=== PATIENT | male | born 1970 | race Caucasian/White ===

== ENCOUNTER 2019-10-31 16:12 | Emergency (ER) | payer BC, OTHER ==
[2019-10-31] MEDS ORDERED: LIDOCAINE 1% MPF 5 ML VIAL ONE (18:29)
--- NOTE | 2019-10-31 19:07 | EDPHYS ---
Physician Documentation [facility] Name: Derek Silva Age: 49 yrs Sex: Male : 1970 Arrival Date: 10/31/2019 Time: 16:22 Bed 10 Private MD: ED Physician Silvano Vivas HPI: 10/30 18:16 This 49 yrs old Male presents to ER via Ambulatory with complaints of Finger pm1 Injury. 18:16 The patient or guardian reports a laceration, irregular. The complaints affect the pm1 dorsal aspect of proximal phalanx of left little finger. Context: The problem was sustained at work, resulted from sharp piece of plastic sticking up on freezer tray. Onset: The symptoms/episode began/occurred just prior to arrival. Modifying factors: The symptoms are alleviated by pressure to area. Associated signs and symptoms: Pertinent negatives: cyanosis distally, decreased sensation distally, numbness distally, tingling distally. Severity of symptoms: in the emergency department the symptoms have improved. The patient has not experienced similar symptoms in the past. The patient has not recently seen a physician. Historical: - Allergies: 16:31 No Known Allergies; ll1 - PMHx: 16:31 SVT; ll1 - Immunization history:: Flu vaccine is not up to date. - Social history:: Smoking status: Patient denies any tobacco usage or history of. Patient/guardian denies using alcohol, street drugs, tobacco products. ROS: 18:16 Constitutional: Negative for fever, chills, and weight loss. pm1 18:16 Neuro: Negative for headache, weakness, numbness, tingling, and seizure. 18:16 MS/extremity: Positive for laceration, of the dorsal aspect of proximal phalanx of left little finger. 18:16 Skin: Positive for laceration(s), of the dorsal aspect of proximal phalanx of left little finger. 18:16 All other systems are negative. Exam: 18:16 Constitutional: This is a well developed, well nourished patient who is awake, alert, pm1 and in no acute distress. Head/Face: Normocephalic, atraumatic. 18:16 Cardiovascular: Exam negative for acute changes, Rate: normal, Rhythm: regular, Pulses: no pulse deficits are appreciated. 18:16 Respiratory: Exam negative for acute changes, respiratory distress, shortness of breath. 18:16 Musculoskeletal/extremity: Extremities: grossly normal except: noted in the dorsal aspect of proximal phalanx of left little finger: laceration, There is no evidence of decreased ROM, deformity, ROM: intact in all extremities, Circulation is intact in all extremities. the left little finger Sensation intact. 18:16 Skin: Appearance: normal except for affected area, injury, laceration(s), the wound is approximately 3 cm(s), with a depth of 0.3 cm(s), of the dorsal aspect of proximal phalanx of left little finger, that can be described as clean, no foreign body, irregular, without bleeding, flap on the joint. Vital Signs: 16:31 BP 155 / 90; Pulse 110; Resp 17; Temp 98.2; Pulse Ox 96% ; Pain 2/10; ll1 19:30 BP 135 / 86; Pulse 95; Resp 15; Temp 98; Pulse Ox 99% on R/A; rv Laceration: 19:04 Wound Repair of 3cm ( 1.2in ) subcutaneous laceration to dorsal aspect of proximal pm1 phalanx of left little finger. Irregularly shaped.. Distal neuro/vascular/tendon intact. Anesthesia: Digital block administered with 2 mls of 1% lidocaine. Wound prep: Extensive cleansing with betadine with hibiclenz by me, Wound irrigation with saline by me, Wound explored extensively, Copious irrigation. Skin closed with 5 5-0 Prolene using simple sutures and sterile technique. Dressed with Neosporin, 4x4's, splint. Patient tolerated well. MDM: 18:09 Patient medically screened. pm1 19:04 Data reviewed: vital signs. Data interpreted: Pulse oximetry: on room air is 96 %. pm1 Interpretation: normal. Counseling: I had a detailed discussion with the patient and/or guardian regarding: the historical points, exam findings, and any diagnostic results supporting the discharge/admit diagnosis, the need for outpatient follow up, a hand specialist, suture removal in 10-14 days, to return to the emergency department if symptoms worsen or persist or if there are any questions or concerns that arise at home. 19:04 ED course: wound loosely closed with area to provide drainage. pm1 10/30 18:16 Order name: Prolene, Sutures; Complete Time: 18:22 pm1 10/30 18:16 Order name: Dressing - Wound; Complete Time: 18:22 pm1 10/30 18:16 Order name: Gloves, Sterile; Complete Time: 18:22 pm1 10/30 18:16 Order name: Setup Suture Tray; Complete Time: 18:22 pm1 10/30 18:17 Order name: Wound Care; Complete Time: 18:19 pm1 Administered Medications: 18:45 Drug: Lidocaine (1 %) 5 ml {Note: administered by J CARLOS Christian.} Volume: 5 ml; Route: ss Infiltration; 19:31 Follow up: Response: No adverse reaction rv Disposition: 20:39 Co-signature as Attending Physician, Silvano Vivas MD I agree with the assessment and amadeo plan of care. Disposition: 10/31/19 19:06 Discharged to Home. Impression: Laceration without foreign body of left little finger without damage to nail. - Condition is Stable. - Discharge Instructions: Cast or Splint Care, Adult, Laceration Care, Adult. - Prescriptions for Doxycycline Hyclate 100 mg Oral Tablet - take 1 tablet by ORAL route every 12 hours; 20 tablet. - Medication Reconciliation Form, Thank You Letter, Antibiotic Education, Prescription Opioid Use form. - Follow up: Emergency Department; When: As needed; Reason: Worsening of condition. Follow up: Private Physician; When: 2 - 3 days; Reason: Recheck today's complaints, Continuance of care, Re-evaluation by your physician. - Problem is new. - Symptoms have improved. Signatures: Silvano Vivas MD MD cha Smirch, Shelby, RN RN ss Gino Heredia NP SCOUT LEASER pm1 Mikey Davis RN RN Nita Card RN RN ll1 Corrections: (The following items were deleted from the chart) 19:31 19:06 10/31/2019 19:06 Discharged to Home. Impression: Laceration without foreign body rv of left little finger without damage to nail. Condition is Stable. Forms are Medication Reconciliation Form, Thank You Letter, Antibiotic Education, Prescription Opioid Use. Follow up: Emergency Department; When: As needed; Reason: Worsening of condition. Follow up: Private Physician; When: 2 - 3 days; Reason: Recheck today's complaints, Continuance of care, Re-evaluation by your physician. Problem is new. Symptoms have improved. pm1
--- NOTE | 2019-10-31 19:07 | ER ---
Nurse's Notes [facility] Name: Derek Silva Age: 49 yrs Sex: Male : 1970 Arrival Date: 10/31/2019 Time: 16:22 Bed 10 Private MD: Diagnosis: Laceration without foreign body of left little finger without damage to nail Presentation: 10/30 16:31 Chief complaint: Patient states: Cut left hand 5th digit on broken piece of plastic ll1 today at work . Avulsion-like laceration noted to 5th digit. Coronavirus screen: Proceed with normal triage. Patient denies a cough. Patient denies shortness of breath or difficulty breathing. Patient denies measured and/or subjective temperature greater than 100.4F prior to today's visit. Patient denies travel on a cruise ship or to a country the [facility] currently lists as an affected area. Patient denies contact with known and/or suspected case of COVID-19. Ebola Screen: Patient denies travel to an Ebola-affected area in the 21 days before illness onset. Initial Sepsis Screen: Does the patient meet any 2 criteria? No. Patient's initial sepsis screen is negative. Risk Assessment: Do you want to hurt yourself or someone else? Patient reports no desire to harm self or others. Onset of symptoms was October 31, 2019. 16:31 Method Of Arrival: Ambulatory [facility] 16:31 Acuity: RUTHY 4 ll1 19:31 Initial Sepsis Screen: Does the patient have a suspected source of infection? No. rv Patient's initial sepsis screen is negative. Triage Assessment: 19:31 Injury Description: Laceration sustained to left hand is clean, superficial. rv Historical: - Allergies: 16:31 No Known Allergies; ll1 - PMHx: 16:31 SVT; ll1 - Immunization history:: Flu vaccine is not up to date. - Social history:: Smoking status: Patient denies any tobacco usage or history of. Patient/guardian denies using alcohol, street drugs, tobacco products. Screenin:13 Abuse screen: Denies threats or abuse. Denies injuries from another. Nutritional ss screening: No deficits noted. Tuberculosis screening: Never had TB. Fall Risk None identified. Assessment: 18:13 General: Appears in no apparent distress. comfortable, Behavior is calm, cooperative. ss Pain: Complains of pain in dorsal aspect of proximal phalanx of left little finger Pain currently is 1 out of 10 on a pain scale. Quality of pain is described as burning, tender. Neuro: Level of Consciousness is awake, alert, obeys commands, Oriented to person, place, time, situation. Cardiovascular: Capillary refill < 3 seconds is brisk in bilateral. Respiratory: Airway is patent Respiratory effort is even, unlabored, Respiratory pattern is regular, symmetrical. Derm: Skin is intact, is healthy with good turgor, Skin is pink, warm \T\ dry. normal. Musculoskeletal: Circulation, motion, and sensation intact. Range of motion: intact in all extremities. Vital Signs: 16:31 BP 155 / 90; Pulse 110; Resp 17; Temp 98.2; Pulse Ox 96% ; Pain 2/10; ll1 19:30 BP 135 / 86; Pulse 95; Resp 15; Temp 98; Pulse Ox 99% on R/A; rv ED Course: 16:22 Patient arrived in ED. bp1 16:33 Triage completed. ll1 16:33 Arm band placed on Patient notified of wait time. ll1 18:08 Gino Heredia NP is PHCP. pm1 18:08 Silvano Vivas MD is Attending Physician. pm1 18:12 Lesvia Hale, AVIS is Primary Nurse. ss 18:13 Patient has correct armband on for positive identification. Bed in low position. Call ss light in reach. 19:30 Assist provider with laceration repair on left hand that was 2.5 cm. or less using rv sutures. Set up tray. Performed by Gino Heredia MARINE EXTENSION AGENT Dressed with 4X4s, Patient tolerated well. Patient did not have IV access during this emergency room visit. Administered Medications: 18:45 Drug: Lidocaine (1 %) 5 ml {Note: administered by J CARLOS Christian.} Volume: 5 ml; Route: ss Infiltration; 19:31 Follow up: Response: No adverse reaction rv Outcome: 19:06 Discharge ordered by . pm1 19:30 Discharged to home ambulatory. rv 19:30 Condition: good 19:30 Discharge instructions given to patient, Instructed on discharge instructions, follow up and referral plans. medication usage, wound care, Demonstrated understanding of instructions, follow-up care, medications, wound care, splint care, Prescriptions given X 1. 19:31 Patient left the ED. rv Signatures: Lesvia Hale, RN RN ss Gino Heredia, MARINE EXTENSION AGENT MARINE EXTENSION AGENT pm1 Mikey Davis, RN RN rv Nita Card, RN RN ll1 Rachele Garza
[2019-10-31 19:38] VITALS: BP 135/86; TEMP 98; O2SAT 99
== END 2019-10-31 19:31 | disposition home or self-care (01) ==
LOC: ER 16:12
PROC: 0JQK0ZZ Repair Left Hand Subcutaneous Tissue and Fascia, Open Approach (ICD-10-PCS; principal; 2019-10-31)
DX: S61.217A Laceration without foreign body of left little finger without damage to nail, initial encounter (principal); W26.8XXA Contact with other sharp object(s), not elsewhere classified, initial encounter; Y93.89 Activity, other specified; Y92.89 Other specified places as the place of occurrence of the external cause; Y99.8 Other external cause status
CPT/HCPCS: 99283

== ENCOUNTER 2019-11-13 11:40 | Emergency (ER) | payer OTHER ==
--- NOTE | 2019-11-13 12:31 | EDPHYS ---
Physician Documentation [facility] Name: Derek Silva Age: 49 yrs Sex: Male : 1970 Arrival Date: 11/13/2019 Time: 11:43 Bed 25 Private MD: None, None ED Physician Dat Mott HPI: 11/12 12:30 This 49 yrs old Male presents to ER via Ambulatory with complaints of Suture pm1 Removal. 12:30 The patient has sutures on the dorsal aspect of PIP of left little finger. Previous pm1 treatment: the care was rendered at [facility], Treatment type: The patient's original treatment included sutures. Sutures/ramses progress: The patient has no c/o's. The wound is well-healing with no redness, swelling, discharge, or dehiscence reported. The patient has not experienced similar symptoms in the past. Historical: - Allergies: 11:58 Levaquin; ll1 - PMHx: 11:58 SVT; ll1 - Social history:: Smoking status: Patient denies any tobacco usage or history of. Patient/guardian denies using alcohol, street drugs. ROS: 12:30 Constitutional: Negative for fever, chills, and weight loss, MS/Extremity: Negative for pm1 injury and deformity. 12:30 Skin: Negative for injury, rash, and discoloration, Neuro: Negative for headache, weakness, numbness, tingling, and seizure. 12:30 All other systems are negative. Exam: 12:30 Constitutional: This is a well developed, well nourished patient who is awake, alert, pm1 and in no acute distress. 12:30 Head/Face: Normocephalic, atraumatic. 12:30 Cardiovascular: Exam negative for acute changes, Rate: normal, Rhythm: regular, Pulses: no pulse deficits are appreciated. 12:30 Respiratory: Exam negative for acute changes, respiratory distress, shortness of breath. 12:30 Skin: Wound recheck: Suture laceration closure: the wound is healing well, the edges are well approximated, no evidence of dehiscence, no drainage, no erythema, no swelling. Vital Signs: 11:58 BP 140 / 88; Pulse 74; Resp 17; Temp 98.2; Pulse Ox 96% ; Pain 0/10; ll1 MDM: 12:22 Patient medically screened. pm1 12:30 Data reviewed: vital signs. Counseling: I had a detailed discussion with the patient pm1 and/or guardian regarding: the historical points, exam findings, and any diagnostic results supporting the discharge/admit diagnosis, to return to the emergency department if symptoms worsen or persist or if there are any questions or concerns that arise at home. Administered Medications: No medications were administered Disposition: 16:18 Co-signature as Attending Physician, Dat Mott MD. rn Disposition: 11/13/19 12:30 Discharged to Home. Impression: Encounter for removal of sutures. - Condition is Stable. - Discharge Instructions: Suture Removal, Care After. - Medication Reconciliation Form, Thank You Letter, Antibiotic Education, Prescription Opioid Use form. - Follow up: Emergency Department; When: As needed; Reason: Worsening of condition. Follow up: Private Physician; When: As needed; Reason: Recheck today's complaints, Continuance of care, Re-evaluation by your physician. - Problem is new. - Symptoms have improved. Signatures: Dat Mott MD MD rn Smirch, Shelby, RN RN ss Gino Heredia, NURSING PROJECT COORDINATOR NURSING PROJECT COORDINATOR pm1 Nita Card RN RN ll1 Corrections: (The following items were deleted from the chart) 12:49 12:30 11/13/2019 12:30 Discharged to Home. Impression: Encounter for removal of ss sutures. Condition is Stable. Forms are Medication Reconciliation Form, Thank You Letter, Antibiotic Education, Prescription Opioid Use. Follow up: Emergency Department; When: As needed; Reason: Worsening of condition. Follow up: Private Physician; When: As needed; Reason: Recheck today's complaints, Continuance of care, Re-evaluation by your physician. Problem is new. Symptoms have improved. pm1
--- NOTE | 2019-11-13 12:31 | ER ---
Nurse's Notes [facility] Name: Derek Silva Age: 49 yrs Sex: Male : 1970 Arrival Date: 11/13/2019 Time: 11:43 Bed 25 Private MD: None, None Diagnosis: Encounter for removal of sutures Presentation: 11/12 11:58 Chief complaint: Patient states: Need sutures removed from left hand 5th digit. ll1 Coronavirus screen: Patient denies a cough. Patient denies shortness of breath or difficulty breathing. Patient denies measured and/or subjective temperature greater than 100.4F prior to today's visit. Patient denies travel on a cruise ship or to a country the [facility] currently lists as an affected area. Patient denies contact with known and/or suspected case of COVID-19. Proceed with normal triage. Ebola Screen: Patient denies travel to an Ebola-affected area in the 21 days before illness onset. Initial Sepsis Screen: Does the patient meet any 2 criteria? No. Patient's initial sepsis screen is negative. Risk Assessment: Do you want to hurt yourself or someone else? Patient reports no desire to harm self or others. Onset of symptoms was October 30, 2019. 11:58 Method Of Arrival: Ambulatory ll1 11:58 Acuity: RUTHY 4 ll1 12:00 Initial Sepsis Screen: Does the patient have a suspected source of infection? No. ah Patient's initial sepsis screen is negative. Historical: - Allergies: 11:58 Levaquin; ll1 - PMHx: 11:58 SVT; ll1 - Social history:: Smoking status: Patient denies any tobacco usage or history of. Patient/guardian denies using alcohol, street drugs. Screenin:00 Abuse screen: Denies threats or abuse. Nutritional screening: No deficits noted. Tuberculosis screening: No symptoms or risk factors identified. Fall Risk None identified. Assessment: 12:00 General: Appears in no apparent distress. comfortable, Behavior is calm, cooperative, ah appropriate for age. 12:00 Pain: Denies pain. Neuro: Level of Consciousness is awake, alert, obeys commands, ah Oriented to person, place, time, situation, Appropriate for age. Cardiovascular: Capillary refill < 3 seconds Patient's skin is warm and dry. Respiratory: Airway is patent Respiratory effort is even, unlabored. Derm: Skin is intact, is healthy with good turgor. Vital Signs: 11:58 BP 140 / 88; Pulse 74; Resp 17; Temp 98.2; Pulse Ox 96% ; Pain 0/10; ll1 ED Course: 11:43 Patient arrived in ED. mr 11:43 None, None is Private Physician. mr 11:58 Arm band placed on Patient placed in an exam room, on a stretcher. ll1 12:00 Triage completed. ll1 12:00 Patient has correct armband on for positive identification. Bed in low position. Call light in reach. Pulse ox on. NIBP on. 12:00 No provider procedures requiring assistance completed. Patient did not have IV access ah during this emergency room visit. Removal of Removed sutures from dorsal aspect of proximal phalanx of left thumb Suture site is well healed Patient tolerated well. 12:15 Gino Heredia NP is PHCP. pm1 12:15 Dat Mott MD is Attending Physician. pm1 12:34 Anna Ferrer, RN is Primary Nurse. Administered Medications: No medications were administered Outcome: 12:30 Discharge ordered by MD. pm1 12:45 Discharged to home ambulatory. 12:45 Condition: good 12:45 Discharge instructions given to patient, Instructed on discharge instructions, follow up and referral plans. Demonstrated understanding of instructions, follow-up care. 12:49 Patient left the ED. Signatures: Kb Celi HaleLesvia, AVIS ALBARRAN Gino Heredia NP BIOMATHEMATICIAN pm1 nAna Ferrer RN RN Nita Card RN RN 1 Corrections: (The following items were deleted from the chart) 13:22 13:17 General: Behavior is calm, cooperative, appropriate for age, [facility]
[2019-11-13 12:53] VITALS: BP 140/88; TEMP 98.2; O2SAT 96
== END 2019-11-13 12:49 | disposition home or self-care (01) ==
LOC: ER 11:40
DX: Z48.02 Encounter for removal of sutures (principal)
CPT/HCPCS: 99283